=== PATIENT | female | born 1985 | race African-American/Black ===

== ENCOUNTER 2024-10-22 06:31 | Outpatient (REF) | payer OTHER, SELFPAY ==
--- NOTE | ~2024-10-22 | US_ITS ---
EXAMINATION: US EXTREMITY MUSCULOSKELETAL HISTORY: lump left groin, ? Cyst vs lymph node COMPARISON: There are no prior studies available for comparison. FINDINGS: Sonographic examination of the left inguinal region was performed. Just beneath the skin, there is an ovoid 1.3 x 0.7 x 1.0 cm ovoid mass which appears partially cystic. This could represent a sebaceous cyst. No internal vascularity is seen. US/US extremity nonvascular IMPRESSION: 1.3 x 0.7 x 1.0 cm partially cystic mass beneath the skin in the left groin corresponding to the palpable findings. This could represent a sebaceous cyst. Clinical correlation is recommended. Electronically signed by: Kwesi Lama MD 10/23/2024 08:13 AM EDT
== END 2024-10-22 06:32 | disposition home or self-care (01) ==
LOC: HO.UMASIMG 06:31
PROVIDERS: Visit Provider Family Medicine
DX: L04.3 Acute lymphadenitis of lower limb (principal); L98.8 Other specified disorders of the skin and subcutaneous tissue
CPT/HCPCS: 76882

== ENCOUNTER → 2024-10-22 15:30 | Outpatient (BNV) | payer OTHER, SELFPAY | PROVIDERS: Visit Provider Radiology Diagnostic Radiology | DX: R19.09 Other intra-abdominal and pelvic swelling, mass and lump (principal) | CPT/HCPCS: 76882 ==

== ENCOUNTER 2025-04-22 06:38 | Outpatient (REF) | payer OTHER, SELFPAY ==
--- NOTE | ~2025-04-22 | US_ITS ---
EXAMINATION: US PELVIS CLINICAL INFORMATION: Suprapubic pain. Dysuria. COMPARISON: None available. TECHNIQUE: Ultrasound of the pelvis is performed using both transabdominal and transvaginal transducers along with Doppler. Transvaginal imaging is performed due to inadequate visualization transabdominally. FINDINGS: Uterus: The uterus is retroverted flexion and measures 10 x 5 x 6 cm. Volume: 145 cc. Cervix is closed measures 6 cm. The double wall endometrial thickness is 7 mm. There is a 4.8 x 4.3 x 5.2 cm heterogeneous exophytic likely subserosal soft tissue lesion to the anterior right lateral aspect of the body of the uterus. . Adnexa: The ovaries are identified with with symmetric flow distribution on color Doppler interrogation.. No gross solid or cystic mass. No free fluid in the cul-de-sac. Right ovary measures 3.5 x 2.7 x 2.8 cm. Volume: 14 cc. Left ovary measures 3 x 1.7 x 2.7 cm. Volume: 7 cc. US/US pelvic and transvaginal IMPRESSION: 5.2 cm subserosal uterine fibroid. Endometrial stripe: 7 mm. No ovarian torsion. No ovarian mass. Electronically signed by: Volodymyr Guiod MD 04/22/2025 12:45 PM EST
--- NOTE | ~2025-04-22 | US_ITS ---
EXAMINATION: US RETROPERITONEAL COMPLETE (RENAL) CLINICAL INFORMATION: Urinary frequency. Flank pain. COMPARISON: None available. TECHNIQUE: Real-time imaging of the kidneys and bladder. FINDINGS: RIGHT KIDNEY: 12 x 4 x 5 cm (SAG x AP x TRV). Normal echotexture. Renal cortical thickness is normal. No hydronephrosis. There are 1.0 and 0.6 cm anechoic lesions without septations or nodular components in the lower pole. No solid lesion. LEFT KIDNEY: 11 x 6 x 5 cm (SAG x AP x TRV). Normal echotexture. Renal cortical thickness is normal. No hydronephrosis. No gross solid or cystic lesion. BLADDER: Fluid-filled. Questionable area left-sided small ureterocele protruding into the posterior wall of the bladder. Bilateral ureteral jets are demonstrated. Prevoid bladder volume is 658 mL. Postvoid bladder volume is 16 mL. US/US retroperitoneal comp IMPRESSION: No hydronephrosis. Simple cysts, right kidney. No gross nephrolithiasis. 16 cc of residual urine in a post void image. Questionable small ureterocele, left-sided.. Electronically signed by: Volodymyr Guido MD 04/22/2025 12:43 PM EST
--- OUTSIDE RECORDS SUMMARY | 2025-04-22 06:42 | XMS_ITS | Clinical Summary ---
Author Organization [facility] Address [address] [facility] [address] [facility] [address] [place] [phone] Phone Care Team Providers Care Typewriter Aligner Name Role Phone FlakoMaria G Primary Care Provider [phone] Allergies No known active allergies Medications No known medications Social History Tobacco Use Types Packs/Day Years Used Date Smoking Tobacco: Never Passive Smoke Exposure: Never Smokeless Tobacco: Never Tobacco Cessation:Counseling Given: Not Answered Alcohol Use Standard Drinks/Week Comments Yes 0 (1 standard drink = 0.6 oz pur e alcohol) occasional Education Answer Date Recorded Are you interested in more education? Not on rene e 11/07/2024 Are you concerned about learning? Not on file 11/07/2024 No 11/07/2024 No 11/07/2024 Digital Access Answer Date Recorded No 11/07/2024 No 11/07/2024 Reliable internet access at home? Not on file 11/07/2024 Device with a working camera? Not on file Comments Unknown Sex and Gender Information Value Date Recorded Sex Assigned at Not on file Legal Sex Female 10:59 AM EDT Gender Identity Not on file Sexual Orientation Not on file Last Filed Vital Signs Vital Sign Reading Time Taken Comments Blood Pressure 105/69 12/18/2024 3:47 PM EDT Pulse 58 12/18/2024 3:47 PM EDT Temperature 36.4 C (97.5 F) 12/18/2024 3:47 PM EDT Respiratory Rate - - Oxygen Saturation 98% 12/18/2024 3:47 PM EDT Inhaled Oxygen Concentration - - Weight 92.3 kg (203 lb 6.4 oz) 12/04/2024 10:52 AM EDT Height - - Body Mass Index - - Plan of Treatment Health Maintenance Due Date Last Done Comments Adult Td,Tdap Booster 1986 DEPRESSION SCREENING 1998 HEPATITIS C SCREENING 2004 HIV ONE-TIME SCREENING (18-6 5 YEARS) 2004 PAP SMEAR 08/11/2007 INFLUENZA VACCINE (#1) 2024 COVID-19 VACCINE (2024-2 6 season) 2025 SMOKING STATUS SCREENING (On ce After 26 Yrs) Completed 12/18/2024 HEPATITIS A VACCINES Aged Out No long er eligible based on patient's age to complete this topic HIB VACCINES Aged Out No longer eligi ble based on patient's age to complete this topic MENINGOCOCCAL VACCINES (ACWY) Aged Out No longer eligible based on patient's age to complete this topic MENINGOCOCCAL VACCINES (B) Aged Out N o longer eligible based on patient's age to complete this topic PNEUMOCOCCAL VACCINES (0-49 years) Aged Out No longer eligible based on patient's age to complete this topic Medical Devices Not on file Insurance MARYAM GARRISON [facility] Address: [facility] [id number] [place] [phone] MARYAM GARRISON [facility] Care Teams Typewriter Aligner Relationship Specialty Start Date End Date Maria G Arriola DO [address] [place] [id number] [email or web address] PCP - General Family Medicine 11/06/24 Additional Source Comments The information contained in this document represents components of the legal health record. It is not the complete legal health record.[facility]
== END 2025-04-22 06:39 | disposition home or self-care (01) ==
LOC: HO.UMASIMG 06:38
PROVIDERS: Visit Provider Family Medicine
DX: Z11.3 Encounter for screening for infections with a predominantly sexual mode of transmission (principal); K62.89 Other specified diseases of anus and rectum; R35.0 Frequency of micturition; R10.A0 Flank pain, unspecified side
CPT/HCPCS: 76770; 76830; 76856

== ENCOUNTER → 2025-04-22 10:09 | Outpatient (BNV) | payer OTHER, SELFPAY | PROVIDERS: Visit Provider Radiology Diagnostic Radiology | DX: N28.1 Cyst of kidney, acquired (principal); D25.2 Subserosal leiomyoma of uterus | CPT/HCPCS: 76770; 76830; 76856 ==